=== PATIENT | female | born 1940 | race Caucasian/White ===

== ENCOUNTER 2017-01-11 14:08 | Outpatient (CLI) | payer MEDICARE ==
--- NOTE | 2017-01-17 12:25 | MMO ---
BILATERAL DIGITAL SCREENING MAMMOGRAMS: Date: 01/11/17 Baseline exam. This patient's mammogram was interpreted with the assistance of computer-aided detection. FINDINGS: There are scattered fibroglandular densities. No suspicious masses or calcifications are identified. IMPRESSION: BIRADS 1: Negative Return to annual mammographic screening. POS: NAOMI
== END 2017-01-11 14:09 | disposition home or self-care (01) ==
LOC: SCSMAMMO 14:08
PROVIDERS: ATTEND Family Medicine
DX: Z12.31 Encounter for screening mammogram for malignant neoplasm of breast (principal)
CPT/HCPCS: 77067; G0202

== ENCOUNTER 2017-11-11 12:10 | Emergency (ER) | payer MEDICARE ==
[2017-11-11 12:37] LABS: Bilirubin Negative (Negative); Blood, Urine Trace (Negative); Clarity Cloudy (Clear); Glucose, Urine (Dipstick) Negative (Negative); Leukocyte Large (Negative); Nitrite Positive (Negative); Protein, Urine (Dipstick) Negative (Neg-Trace); Urobilinogen 0.2 mg/dL (0.2-1.0)
[2017-11-11 12:45] LABS: RBC/HPF 0-3 HPF (0-3); Squamous Epithelial 0-3 HPF (0-3)
[2017-11-11 12:46] LABS: Bacteria/HPF 4+ HPF (None Seen)
[2017-11-11] MEDS ORDERED: Ketorolac Tromethamine 30 MG/ML VIAL ONE (13:12)
== END 2017-11-11 13:33 | disposition home or self-care (01) ==
LOC: SCSER 12:10
DX: N39.0 Urinary tract infection, site not specified (principal); M53.3 Sacrococcygeal disorders, not elsewhere classified; I25.10 Atherosclerotic heart disease of native coronary artery without angina pectoris; E11.9 Type 2 diabetes mellitus without complications; E78.5 Hyperlipidemia, unspecified; I10 Essential (primary) hypertension; Z79.82 Long term (current) use of aspirin; Z79.84 Long term (current) use of oral hypoglycemic drugs; Z79.899 Other long term (current) drug therapy
CPT/HCPCS: 81003; 81015; 87077; 87086; 87186; 96372; J1885

== ENCOUNTER 2021-11-02 12:58 | Inpatient (IN) | payer MEDICARE ==
[2021-11-02 13:54] LABS: ALT (SGPT) 10 U/L (8-55); AST (SGOT) 15 U/L (5-34); Albumin 3.9 g/dL (3.4-4.8); Alkaline Phosphatase 47 U/L (40-110); Anion Gap 12 mmol/L (10-20); BUN (Urea Nitrogen) 20 mg/dL (9.8-20.1); Bilirubin, Total 0.3 mg/dL (0.2-1.2); Calc. Creatinine Clearance 0 mL/min (70-130); Carbon Dioxide 24 mmol/L (23-31); Chloride 107 mmol/L (98-107); Estimated GFR 52; Globulin 2.6 g/dL (2.4-3.5); Glucose 124 mg/dL (83-110); Potassium 4.4 mmol/L (3.5-5.1); Protein, Total 6.5 g/dL (5.8-8.1); Sodium 139 mmol/L (136-145)
[2021-11-02 14:05] LABS: #Lymphocytes 1.1 thou/uL (1.20-3.40); #Monocytes 0.3 thou/uL (0.11-0.59); #Neutrophils 3.6 thou/uL (1.40-6.50); %Eosinophils 0.5 % (0.0-10.0); %Lymphocytes 21.8 % (21.0-51.0); %Monocytes 6.6 % (0.0-10.0); %Neutrophils 71.1 % (42.0-75.0); Hemoglobin 7.2 g/dL (12.0-16.0); Mean Corpuscular HGB CONC 29.4 g/dL (32.0-36.0); Mean Corpuscular Hemoglobin 27.4 pg (27.0-31.0); Mean Corpuscular Volume 93.4 fL (78.0-98.0); Mean Platelet Volume 7.2 fL (7.4-10.4); Platelet Count 312 thou/uL (130-400); RBC Distribution Width 16.1 % (11.5-14.5); Red Blood Cell (RBC) Count 2.64 mill/uL (4.20-5.40); White Blood Cell (WBC) Count 5.1 thou/uL (4.8-10.8)
[2021-11-02] MEDS ORDERED: Pantoprazole 40 MG VIAL ONE (14:50)
[2021-11-02] MEDS ORDERED: Ondansetron PF 4 MG/2 ML Vial IVP PRN (15:24)
[2021-11-02] MEDS ORDERED: Ondansetron ODT 4 MG TAB PO PRN (15:24)
[2021-11-02] MEDS ORDERED: Acetaminophen 325 MG TAB PO PRN (15:24)
[2021-11-02] MEDS ORDERED: Dextrose 50% Abboject 50 ML SYRINGE SLOW IVP PRN (15:46)
[2021-11-02] MEDS ORDERED: HumaLOG 300 UNITS/3 ML VIAL SC PRN (15:46)
[2021-11-02] MEDS ORDERED: Dextrose 5% in Water 1,000 ML IV PRN (15:46)
[2021-11-02] MEDS ORDERED: GoLYTELY 4,000 ml Bottle PO SCH (17:00)
[2021-11-02 17:42] VITALS: BMI 35.9
[2021-11-02 20:35] LABS: SARS-CoV-2 NAA Rapid Test Not Detected (NotDetected)
[2021-11-02] MEDS: Atorvastatin Calcium 20 MG TAB PO SCH (21:31)
[2021-11-02] MEDS: Pantoprazole 40 MG VIAL IVP SCH (21:32)
[2021-11-03] MEDS: Levothyroxine Sodium 25 MCG TAB PO SCH (06:08)
[2021-11-03] MEDS ORDERED: GoLYTELY 4,000 ml Bottle PO SCH (07:00)
[2021-11-03] MEDS: NIFEdipine XL 90 MG TAB PO SCH (07:56)
[2021-11-03] MEDS: Pantoprazole 40 MG VIAL IVP SCH ×2 (07:56→20:11)
[2021-11-03] MEDS: Lisinopril 20 MG TAB PO SCH (07:57)
[2021-11-03] MEDS ORDERED: Ferrous Sulfate 325 MG TAB PO SCH (08:00)
[2021-11-03 12:40] LABS: Hemoglobin 8.9 g/dL (12.0-16.0)
[2021-11-03] MEDS ORDERED: PROPOFOL 200 MG/20 ML VIAL ONE (13:50)
[2021-11-03] MEDS ORDERED: Promethazine HCl 25 MG/ML VIAL IVPB PRN (14:33)
[2021-11-03] MEDS ORDERED: Promethazine HCl 25 MG/ML VIAL IM PRN (14:33)
[2021-11-03] MEDS ORDERED: Ondansetron HCl/PF 4 MG/2 ML Vial IVP PRN (14:33)
[2021-11-03] MEDS ORDERED: Polyethylene Glycol 3350 17 GM Packet PO PRN (15:30)
[2021-11-03] MEDS: Atorvastatin Calcium 20 MG TAB PO SCH (20:11)
[2021-11-04] MEDS: Levothyroxine Sodium 25 MCG TAB PO SCH (05:22)
[2021-11-04 06:33] LABS: Hemoglobin 7.4 g/dL (12.0-16.0); Mean Corpuscular HGB CONC 30.1 g/dL (32.0-36.0); Mean Corpuscular Hemoglobin 28.2 pg (27.0-31.0); Mean Corpuscular Volume 93.7 fL (78.0-98.0); Mean Platelet Volume 7.3 fL (7.4-10.4); Platelet Count 255 thou/uL (130-400); RBC Distribution Width 15.6 % (11.5-14.5); Red Blood Cell (RBC) Count 2.63 mill/uL (4.20-5.40); White Blood Cell (WBC) Count 6.3 thou/uL (4.8-10.8)
[2021-11-04 06:34] LABS: #Eosinphils 0.1 thou/uL (0.0-0.7); #Lymphocytes 1.2 thou/uL (1.20-3.40); #Monocytes 0.5 thou/uL (0.11-0.59); #Neutrophils 4.5 thou/uL (1.40-6.50); %Basophils 0.1 % (0.0-1.0); %Eosinophils 1.1 % (0.0-10.0); %Lymphocytes 18.6 % (21.0-51.0); %Neutrophils 72.1 % (42.0-75.0)
[2021-11-04 06:52] LABS: Anion Gap 12 mmol/L (10-20); BUN (Urea Nitrogen) 11 mg/dL (9.8-20.1); Calc. Creatinine Clearance 66 mL/min (70-130); Calcium 8.3 mg/dL (7.8-10.44); Carbon Dioxide 23 mmol/L (23-31); Chloride 110 mmol/L (98-107); Estimated GFR 63; Glucose 135 mg/dL (83-110); Sodium 141 mmol/L (136-145)
[2021-11-04] MEDS: Lisinopril 20 MG TAB PO SCH (08:10)
[2021-11-04] MEDS: Pantoprazole 40 MG VIAL IVP SCH (08:10)
[2021-11-04] MEDS: NIFEdipine XL 90 MG TAB PO SCH (08:10)
[2021-11-04 08:24] LABS: Hypochromia SLIGHT = 6-15 cells (100X) (0-5/hpf); MDiff Complete? YES; Platelet Morphology Comment Appears Adequate; Polychromasia SLIGHT = 2-3 cells (100X) (0-2/hpf)
[2021-11-04] MEDS ORDERED: Iron, Sodium Ferric Gluconate 250 MG in Sodium Chloride 0.9% 250 ML 250 ML IVPB SCH (14:00)
[2021-11-04 16:19] VITALS: BP 106/54; TEMP 97.3
[2021-11-05] MEDS ORDERED: Iron Polysaccharides Complex 150 MG CAP PO SCH (08:00)
== END 2021-11-04 16:58 | disposition home or self-care (01) | DRG 378 ==
LOC: ERS 12:58 → T4-A 16:28
PROVIDERS: ADMIT Internal Medicine Geriatric Medicine; ATTEND Internal Medicine Geriatric Medicine
PROC: 30233N1 Transfusion of Nonautologous Red Blood Cells into Peripheral Vein, Percutaneous Approach (ICD-10-PCS; principal; 2021-11-02)
PROC: 0DB78ZX Excision of Stomach, Pylorus, Via Natural or Artificial Opening Endoscopic, Diagnostic (ICD-10-PCS; 2021-11-03)
PROC: 0DBK8ZZ Excision of Ascending Colon, Via Natural or Artificial Opening Endoscopic (ICD-10-PCS; 2021-11-03)
DX: K92.1 Melena (principal); D62 Acute posthemorrhagic anemia; Z20.822 Contact with and (suspected) exposure to COVID-19; I10 Essential (primary) hypertension; E03.9 Hypothyroidism, unspecified; E11.9 Type 2 diabetes mellitus without complications; I25.10 Atherosclerotic heart disease of native coronary artery without angina pectoris; E78.00 Pure hypercholesterolemia, unspecified; F17.210 Nicotine dependence, cigarettes, uncomplicated; K59.09 Other constipation; K31.819 Angiodysplasia of stomach and duodenum without bleeding; K29.60 Other gastritis without bleeding; K55.20 Angiodysplasia of colon without hemorrhage; K63.5 Polyp of colon; Z79.82 Long term (current) use of aspirin; Z79.890 Hormone replacement therapy; Z79.84 Long term (current) use of oral hypoglycemic drugs; Z79.899 Other long term (current) drug therapy; Z80.41 Family history of malignant neoplasm of ovary; Z82.49 Family history of ischemic heart disease and other diseases of the circulatory system; Z95.5 Presence of coronary angioplasty implant and graft
CPT/HCPCS: 36415; 36416; 36430; 80048; 80053; 82728; 83540; 83550; 83880; 84484; 85014; 85018; 85025; 86850; 86900; 86901; 88305; 88342; 93005; C9113; J2704; J2916; J7050; J7620; P9016; U0002

== ENCOUNTER 2023-08-20 22:45 | Inpatient (IN) | payer MEDICARE ==
[2023-08-20 23:32] LABS: #Basophils Less than 0.03 10x3/uL (0.0-0.2); #Eosinphils Less than 0.03 10x3/uL (0.0-0.7); %Basophils 0.2 % (0.0-1.0); %Eosinophils 0.2 % (0.0-10.0); %Lymphocytes 10.2 % (21.0-51.0); %Monocytes 7.3 % (0.0-10.0); %Neutrophils 81.7 % (42.0-75.0); Hematocrit 24.7 % (36.0-47.0); Hemoglobin 7.8 g/dL (12.0-16.0); Mean Corpuscular HGB CONC 31.6 g/dL (32.0-36.0); Mean Corpuscular Hemoglobin 26.9 pg (27.0-31.0); Mean Corpuscular Volume 85.2 fL (78.0-98.0); Mean Platelet Volume 9.9 fL (7.4-10.4); Platelet Count 181 10x3/uL (130-400); RBC Distribution Width 16.2 % (11.5-14.5)
[2023-08-20 23:48] LABS: Anion Gap 17 mmol/L (10-20); BUN (Urea Nitrogen) 85 mg/dL (9.8-20.1); Calc. Creatinine Clearance 0 mL/min (70-130); Carbon Dioxide 42 mmol/L (23-31); Chloride 84 mmol/L (98-107); Potassium 2.9 mmol/L (3.5-5.1); Sodium 140 mmol/L (136-145)
[2023-08-20 23:49] LABS: ALT (SGPT) 21 U/L (8-55); AST (SGOT) 30 U/L (5-34); Albumin 3.2 g/dL (3.4-4.8); Alkaline Phosphatase 45 U/L (40-110); Bilirubin, Total 0.6 mg/dL (0.2-1.2); Calcium 9.5 mg/dL (7.8-10.44); Estimated GFR 34; Globulin 3.2 g/dL (2.4-3.5); Glucose 247 mg/dL (83-110); Protein, Total 6.4 g/dL (5.8-8.1)
[2023-08-20 23:52] LABS: Troponin I 0.026 ng/mL (< 0.028)
[2023-08-21] MEDS ORDERED: Furosemide 40 MG (4 mL) VIAL ONE ×2 (00:48)
[2023-08-21] MEDS ORDERED: Potassium Chloride 20 MEQ TAB ONE (02:34)
[2023-08-21] MEDS ORDERED: Acetaminophen 325 MG TAB PO PRN (03:45)
[2023-08-21] MEDS ORDERED: Glucagon 1 MG/ML KIT IM PRN (03:58)
[2023-08-21] MEDS ORDERED: Dextrose 50% Abboject 50 ML SYRINGE SLOW IVP PRN (03:58)
[2023-08-21] MEDS ORDERED: Dextrose 5% in Water 1,000 ML IV PRN (03:58)
[2023-08-21] MEDS: HumaLOG 300 UNITS/3 ML VIAL SC PRN ×2 (06:06→21:02)
[2023-08-21] MEDS: Potassium Chloride 20 MEQ in Premix 1 BAG IVPB SCH (06:06)
[2023-08-21 06:29] VITALS: BMI 32.4
[2023-08-21 07:42] LABS: Iron 17 ug/dL (50-170); Iron Binding Capacity, Total 374 mcg/dL (265-497); Magnesium 2.2 mg/dL (1.6-2.6)
[2023-08-21 08:34] LABS: Anion Gap 14 mmol/L (10-20); BUN (Urea Nitrogen) 79 mg/dL (9.8-20.1); Calc. Creatinine Clearance 44 mL/min (70-130); Calcium 9.2 mg/dL (7.8-10.44); Carbon Dioxide 48 mmol/L (23-31); Chloride 84 mmol/L (98-107); Estimated GFR 43; Glucose 182 mg/dL (83-110); Potassium 2.8 mmol/L (3.5-5.1); Sodium 143 mmol/L (136-145)
[2023-08-21] MEDS: Enoxaparin 30 MG (0.3 mL) SYRINGE SC SCH (09:10)
[2023-08-21] MEDS: Potassium Chloride 20 MEQ TAB PO SCH (09:10)
[2023-08-21] MEDS: Furosemide 40 MG (4 mL) VIAL SLOW IVP SCH (09:10)
[2023-08-21] MEDS: Gabapentin 100 MG CAP PO SCH (19:58)
[2023-08-21] MEDS: Melatonin 3 MG TAB PO SCH (19:59)
[2023-08-22] MEDS: Levothyroxine Sodium 75 MCG TAB PO SCH (05:47)
[2023-08-22 05:57] LABS: #Basophils Less than 0.03 10x3/uL (0.0-0.2); %Basophils 0.3 % (0.0-1.0); %Eosinophils 0.9 % (0.0-10.0); %Lymphocytes 18.8 % (21.0-51.0); %Monocytes 10.5 % (0.0-10.0); %Neutrophils 69.3 % (42.0-75.0); Hematocrit 24.2 % (36.0-47.0); Hemoglobin 7.6 g/dL (12.0-16.0); Mean Corpuscular HGB CONC 31.4 g/dL (32.0-36.0); Mean Corpuscular Hemoglobin 26.7 pg (27.0-31.0); Mean Corpuscular Volume 84.9 fL (78.0-98.0); Mean Platelet Volume 10.8 fL (7.4-10.4); Platelet Count 206 10x3/uL (130-400); RBC Distribution Width 16.4 % (11.5-14.5); Red Blood Cell (RBC) Count 2.85 mill/uL (4.20-5.40)
[2023-08-22 06:18] LABS: ALT (SGPT) 19 U/L (8-55); AST (SGOT) 39 U/L (5-34); Albumin 3.1 g/dL (3.4-4.8); Alkaline Phosphatase 39 U/L (40-110); Anion Gap 16 mmol/L (10-20); BUN (Urea Nitrogen) 72 mg/dL (9.8-20.1); Bilirubin, Total 0.4 mg/dL (0.2-1.2); Calc. Creatinine Clearance 45 mL/min (70-130); Calcium 9.4 mg/dL (7.8-10.44); Carbon Dioxide 44 mmol/L (23-31); Chloride 87 mmol/L (98-107); Estimated GFR 43; Globulin 3.4 g/dL (2.4-3.5); Glucose 154 mg/dL (83-110); Potassium 3.8 mmol/L (3.5-5.1); Protein, Total 6.5 g/dL (5.8-8.1); Sodium 143 mmol/L (136-145)
[2023-08-22] MEDS: Aspirin Chewable 81 MG TAB PO SCH (08:22)
[2023-08-22] MEDS: Cholecalciferol 1,000 UNITS (25 MCG) TAB PO SCH (08:23)
[2023-08-22] MEDS: Empagliflozin 10 MG TAB PO SCH (08:23)
[2023-08-22] MEDS: Ferrous Sulfate 325 MG TAB PO SCH (08:23)
[2023-08-22] MEDS: Furosemide 20 MG TAB PO SCH (08:23)
[2023-08-22] MEDS: Multivitamin w/Zinc Stress 1 TAB PO SCH (08:30)
[2023-08-22] MEDS: Furosemide 40 MG (4 mL) VIAL IVP SCH (12:01)
[2023-08-22 15:33] LABS: #Basophils Less than 0.03 10x3/uL (0.0-0.2); %Basophils 0.2 % (0.0-1.0); %Eosinophils 0.6 % (0.0-10.0); %Lymphocytes 15.2 % (21.0-51.0); %Monocytes 9.8 % (0.0-10.0); %Neutrophils 73.9 % (42.0-75.0); Hematocrit 26.4 % (36.0-47.0); Hemoglobin 8.2 g/dL (12.0-16.0); Mean Corpuscular HGB CONC 31.1 g/dL (32.0-36.0); Mean Corpuscular Hemoglobin 26.6 pg (27.0-31.0); Mean Corpuscular Volume 85.7 fL (78.0-98.0); Mean Platelet Volume 10.3 fL (7.4-10.4); Platelet Count 234 10x3/uL (130-400); RBC Distribution Width 16.4 % (11.5-14.5); Red Blood Cell (RBC) Count 3.08 mill/uL (4.20-5.40)
[2023-08-22] MEDS: Metoprolol Tartrate 25 MG TAB PO SCH (22:53)
[2023-08-23 04:28] LABS: #Basophils Less than 0.03 10x3/uL (0.0-0.2); %Basophils 0.2 % (0.0-1.0); %Eosinophils 0.4 % (0.0-10.0); %Lymphocytes 17.7 % (21.0-51.0); %Monocytes 12.4 % (0.0-10.0); %Neutrophils 68.9 % (42.0-75.0); Hematocrit 23.3 % (36.0-47.0); Hemoglobin 7.4 g/dL (12.0-16.0); Mean Corpuscular HGB CONC 31.8 g/dL (32.0-36.0); Mean Corpuscular Hemoglobin 27.5 pg (27.0-31.0); Mean Corpuscular Volume 86.6 fL (78.0-98.0); Mean Platelet Volume 9.6 fL (7.4-10.4); Platelet Count 198 10x3/uL (130-400); RBC Distribution Width 16.3 % (11.5-14.5); Red Blood Cell (RBC) Count 2.69 mill/uL (4.20-5.40)
[2023-08-23 04:48] LABS: ALT (SGPT) 18 U/L (8-55); AST (SGOT) 21 U/L (5-34); Alkaline Phosphatase 43 U/L (40-110); Anion Gap 14 mmol/L (10-20); BUN (Urea Nitrogen) 62 mg/dL (9.8-20.1); Bilirubin, Total 0.6 mg/dL (0.2-1.2); Calc. Creatinine Clearance 42 mL/min (70-130); Calcium 9.7 mg/dL (7.8-10.44); Carbon Dioxide 48 mmol/L (23-31); Chloride 85 mmol/L (98-107); Estimated GFR 41; Globulin 3.1 g/dL (2.4-3.5); Glucose 144 mg/dL (83-110); Potassium 3.2 mmol/L (3.5-5.1); Protein, Total 6.1 g/dL (5.8-8.1); Sodium 144 mmol/L (136-145)
[2023-08-23] MEDS: Potassium Chloride 20 MEQ TAB PO SCH (08:33)
[2023-08-23] MEDS ORDERED: Furosemide 40 MG (4 mL) VIAL SLOW IVP SCH (09:30)
[2023-08-23] MEDS: Ondansetron PF 4 MG/2 ML Vial IVP SCH (10:10)
[2023-08-23] MEDS: Metoprolol Tartrate 100 MG TAB PO SCH ×2 (10:10→21:51)
[2023-08-23] MEDS: dilTIAZem 30 MG TAB PO SCH ×2 (12:23→16:59)
[2023-08-23] MEDS: Furosemide 40 MG (4 mL) VIAL SLOW IVP SCH (21:50)
[2023-08-24 01:33] LABS: Hematocrit 29.7 % (36.0-47.0); Hemoglobin 9.4 g/dL (12.0-16.0)
[2023-08-24 04:31] LABS: #Basophils 0.03 10x3/uL (0.0-0.2); #Eosinphils Less than 0.03 10x3/uL (0.0-0.7); %Basophils 0.3 % (0.0-1.0); %Lymphocytes 20.1 % (21.0-51.0); %Monocytes 10.7 % (0.0-10.0); %Neutrophils 68.3 % (42.0-75.0); Hematocrit 31.4 % (36.0-47.0); Hemoglobin 9.9 g/dL (12.0-16.0); Mean Corpuscular HGB CONC 31.5 g/dL (32.0-36.0); Mean Corpuscular Hemoglobin 26.9 pg (27.0-31.0); Mean Corpuscular Volume 85.3 fL (78.0-98.0); Mean Platelet Volume 10.5 fL (7.4-10.4); Platelet Count 260 10x3/uL (130-400); Red Blood Cell (RBC) Count 3.68 mill/uL (4.20-5.40)
[2023-08-24 04:48] LABS: ALT (SGPT) 102 U/L (8-55); AST (SGOT) 154 U/L (5-34); Alkaline Phosphatase 68 U/L (40-110); Anion Gap 19 mmol/L (10-20); BUN (Urea Nitrogen) 64 mg/dL (9.8-20.1); Bilirubin, Total 1.4 mg/dL (0.2-1.2); Calc. Creatinine Clearance 31 mL/min (70-130); Calcium 9.9 mg/dL (7.8-10.44); Carbon Dioxide 41 mmol/L (23-31); Chloride 86 mmol/L (98-107); Estimated GFR 29; Globulin 3.6 g/dL (2.4-3.5); Glucose 180 mg/dL (83-110); Potassium 4.7 mmol/L (3.5-5.1); Protein, Total 6.6 g/dL (5.8-8.1); Sodium 141 mmol/L (136-145)
[2023-08-24] MEDS: Diclofenac 1% 50 GM TOPICAL GEL TP SCH (09:53)
[2023-08-25 05:10] LABS: #Basophils Less than 0.03 10x3/uL (0.0-0.2); %Basophils 0.2 % (0.0-1.0); %Eosinophils 0.8 % (0.0-10.0); %Lymphocytes 19.3 % (21.0-51.0); %Monocytes 11.4 % (0.0-10.0); %Neutrophils 67.7 % (42.0-75.0); Hematocrit 30.6 % (36.0-47.0); Hemoglobin 9.7 g/dL (12.0-16.0); Mean Corpuscular HGB CONC 31.7 g/dL (32.0-36.0); Mean Corpuscular Hemoglobin 26.8 pg (27.0-31.0); Mean Corpuscular Volume 84.5 fL (78.0-98.0); Mean Platelet Volume 10.7 fL (7.4-10.4); Platelet Count 226 10x3/uL (130-400); RBC Distribution Width 15.9 % (11.5-14.5); Red Blood Cell (RBC) Count 3.62 mill/uL (4.20-5.40)
[2023-08-25 05:23] LABS: Bacteria/HPF 4+ HPF (None Seen); Bilirubin Negative (Negative); Blood, Urine 3+ (Negative); CAUTI Indications for Culture Alt mental st,lethar; Clarity Turbid (Clear); Glucose, Urine (Dipstick) 300 mg/dL (Negative); Ketone, Urine Negative (Negative); Leukocyte 250 Leu/uL (Negative); Nitrite Negative (Negative); Protein, Urine (Dipstick) 10 mg/dL (Neg-Trace); RBC/HPF 0-3 HPF (0-3); Specific Gravity, Urine 1.016 (1.002-1.036); Squamous Epithelial 0-3 HPF (0-3); pH, Urine 6.5 (5.0-9.0)
[2023-08-25 05:24] LABS: Urine Culture Reflex Yes Yes
[2023-08-25 05:33] LABS: ALT (SGPT) 132 U/L (8-55); AST (SGOT) 127 U/L (5-34); Albumin 2.9 g/dL (3.4-4.8); Alkaline Phosphatase 78 U/L (40-110); Anion Gap 16 mmol/L (10-20); BUN (Urea Nitrogen) 68 mg/dL (9.8-20.1); Bilirubin, Total 0.7 mg/dL (0.2-1.2); Calc. Creatinine Clearance 32 mL/min (70-130); Calcium 9.1 mg/dL (7.8-10.44); Carbon Dioxide 42 mmol/L (23-31); Chloride 86 mmol/L (98-107); Estimated GFR 30; Globulin 3.5 g/dL (2.4-3.5); Glucose 148 mg/dL (83-110); Potassium 3.7 mmol/L (3.5-5.1); Protein, Total 6.4 g/dL (5.8-8.1); Sodium 140 mmol/L (136-145)
[2023-08-25 18:45] VITALS: BP 118/69; TEMP 98.9
[2023-08-25] MEDS: Furosemide 20 MG (2 mL) VIAL SLOW IVP SCH (19:54)
[2023-08-26] MEDS ORDERED: Furosemide 20 MG (2 mL) VIAL SLOW IVP SCH (09:00)
== END 2023-08-25 19:20 | disposition swing bed (61) | DRG 291 ==
LOC: ERS 22:45 → 2SW 08-21 05:52 → 2NO 08-22 15:41
PROVIDERS: ADMIT Student in an Organized Health Care Education/Training Program; ATTEND Student in an Organized Health Care Education/Training Program
PROC: 30233N1 Transfusion of Nonautologous Red Blood Cells into Peripheral Vein, Percutaneous Approach (ICD-10-PCS; principal; 2023-08-23)
DX: I13.0 Hypertensive heart and chronic kidney disease with heart failure and stage 1 through stage 4 chronic kidney disease, or unspecified chronic kidney disease (principal); I50.33 Acute on chronic diastolic (congestive) heart failure; J96.21 Acute and chronic respiratory failure with hypoxia; E87.3 Alkalosis; N17.9 Acute kidney failure, unspecified; E78.5 Hyperlipidemia, unspecified; E03.9 Hypothyroidism, unspecified; E87.6 Hypokalemia; I48.91 Unspecified atrial fibrillation; M19.071 Primary osteoarthritis, right ankle and foot; M77.31 Calcaneal spur, right foot; N18.9 Chronic kidney disease, unspecified; D63.1 Anemia in chronic kidney disease; E11.22 Type 2 diabetes mellitus with diabetic chronic kidney disease; I25.10 Atherosclerotic heart disease of native coronary artery without angina pectoris; Z96.649 Presence of unspecified artificial hip joint; Z79.82 Long term (current) use of aspirin; Z79.890 Hormone replacement therapy; Z79.899 Other long term (current) drug therapy; Z87.891 Personal history of nicotine dependence; Z91.148 Patient's other noncompliance with medication regimen for other reason
CPT/HCPCS: 36415; 36416; 36430; 71045; 80048; 80053; 81001; 82607; 82728; 83540; 83550; 83735; 83880; 84484; 85025; 85046; 86850; 86900; 86901; 87086; 93005; 93306; 96374; J1650; J1815; J1940; J2405; J3480; P9016